=== PATIENT | female | born 1995 | race Two or more races ===

== ENCOUNTER 2025-01-02 14:15 | Emergency (ER) | payer OTHER ==
[~2025-01-02] VITALS: Ht 177.8 cm; Wt 81.6 kg
[2025-01-02] MEDS: LORAZEPAM 0.5 MG TABLET PO ONE (15:00)
[2025-01-02] MEDS ORDERED: HYDR-500 PO (15:08)
[2025-01-02] MEDS ORDERED: LORAZEPAM 0.5 MG TABLET ONE (15:08)
[2025-01-02 16:49] VITALS: BP 121/81; TEMP 98.1; O2SAT 99
== END 2025-01-02 15:40 | disposition home or self-care (01) ==
LOC: ER 14:21
DX: G43.909 Migraine, unspecified, not intractable, without status migrainosus (principal); R07.89 Other chest pain; R11.0 Nausea; F41.9 Anxiety disorder, unspecified; F17.200 Nicotine dependence, unspecified, uncomplicated